=== PATIENT | female | born 1950 | race Caucasian/White ===

== ENCOUNTER 2022-12-21 14:57 | Outpatient (OUT) | payer MEDICARE, OTHER, SELFPAY ==
--- NOTE | 2022-12-21 15:12 | MM_ITS ---
Patient: JOSEPH FUENTES Exam Date: 12/21/2022 : 1950 Gender:F Ordering : DR FITZ TYSON M.D. Admission #: [id number] Family : DR Haven Jensen M.D. Order #: [id number] CLICK HERE TO VIEW EXAM RADIOLOGY REPORT PROCEDURE: MM TOMOSYNTHESIS SCREENING BI COMPARISON: MG MAMM SCREEN 3D FRANK CAD, 10/27/2021. MG MAMM SCREEN FRANK W CAD, 01/07/2020. INDICATIONS: Screening mammogram Z12.31 Calculator Name NCI Breast Cancer Risk Assessment Tool 5 Year Breast Cancer Risk 1.30% Lifetime Breast Cancer Risk 3.00% Personal Breast Cancer No Personal Ovarian Cancer Yes, OVARIAN CA 2007 Treatments HYSTERECTOMY AND CHEMO Family Cancers Grandmother-maternal with colon cancer at age ~60. LOCATION: [facility] BREAST COMPOSITION: Almost entirely fatty. FINDINGS: DIAGNOSTIC CATEGORY 1--NEGATIVE. NO CHANGE FROM COMPARISON ASSESSMENT. Scattered benign-appearing nodules are present. Scattered benign-appearing calcifications are present. Scattered benign-appearing lymph nodes are present. RIGHT BREAST: No significant suspicious finding. LEFT BREAST: No significant suspicious finding. RECOMMENDATIONS: ROUTINE MAMMOGRAM AND CLINICAL EVALUATION IN 12 MONTHS. PLEASE NOTE: A NORMAL MAMMOGRAM DOES NOT EXCLUDE THE POSSIBILITY OF BREAST CANCER. A CLINICALLY SUSPICIOUS PALPABLE LUMP SHOULD BE BIOPSIED. Dictated by: Randy Spangler MD on 12/22/2022 at 09:01 Approved by: Randy Spangler MD on 12/22/2022 at 09:02
== END 2022-12-21 14:58 | disposition home or self-care (01) ==
PROVIDERS: PCP Family Medicine; Visit Provider Internal Medicine Hematology & Oncology
DX: Z12.31 Encounter for screening mammogram for malignant neoplasm of breast (principal); Z80.0 Family history of malignant neoplasm of digestive organs
CPT/HCPCS: 77063; 77067

== ENCOUNTER 2024-01-26 13:05 | Outpatient (OUT) | payer MEDICARE, OTHER, SELFPAY ==
--- NOTE | 2024-01-26 13:08 | MM_ITS ---
Patient Name: JOSEPH FUENTES MR#: [id number] : 1950 Exam Date: 01/26/2024 Ordering Doctor: DR FITZ TYSON M.D. RADIOLOGY REPORT PROCEDURE: MM TOMOSYNTHESIS SCREENING BI COMPARISON: MM TOMOSYNTHESIS SCREENING BI, 12/21/2022. MG MAMM SCREEN 3D FRANK CAD, 10/27/2021. INDICATIONS: Screening Calculator Name NCI Breast Cancer Risk Assessment Tool 5 Year Breast Cancer Risk 1.30% Lifetime Breast Cancer Risk 2.80% Personal Breast Cancer No Personal Ovarian Cancer Yes, OVARIAN CA 2007 Treatments HYSTERECTOMY AND CHEMO Family Cancers Grandmother-maternal with colon cancer at age ~60. LOCATION: [facility] BREAST COMPOSITION: The breasts are almost entirely fatty. FINDINGS: DIAGNOSTIC CATEGORY 2--BENIGN FINDING. NO CHANGE FROM COMPARISON. Scattered benign-appearing nodules are present. Scattered benign-appearing calcifications are present. Scattered benign-appearing lymph nodes are present. RIGHT BREAST: No significant suspicious finding. LEFT BREAST: No significant suspicious finding. RECOMMENDATIONS: ROUTINE MAMMOGRAM AND CLINICAL EVALUATION IN 12 MONTHS. PLEASE NOTE: A NORMAL MAMMOGRAM DOES NOT EXCLUDE THE POSSIBILITY OF BREAST CANCER. A CLINICALLY SUSPICIOUS PALPABLE LUMP SHOULD BE BIOPSIED. Dictated by: Randy Spangler MD on 01/26/2024 at 15:50 Approved by: Randy Spangler MD on 01/26/2024 at 15:52
== END 2024-01-26 13:06 | disposition home or self-care (01) ==
LOC: MAMMO 13:05
PROVIDERS: PCP Family Medicine; Visit Provider Internal Medicine Hematology & Oncology
DX: Z12.31 Encounter for screening mammogram for malignant neoplasm of breast (principal); Z80.0 Family history of malignant neoplasm of digestive organs
CPT/HCPCS: 77063; 77067

== ENCOUNTER 2024-03-16 15:53 | Outpatient (OUT) | payer MEDICARE, OTHER, SELFPAY ==
--- NOTE | 2024-03-16 15:56 | XR_ITS ---
The [address] [address] Patient Name: JOSEPH FUENTES MRN: [id number] date: 1950 Sex: F Assigned Patient Location: [facility] Current Patient Location: Accession/Order Number: [id number] Exam Date: 03/16/2024 15:58 Report Date: 03/17/2024 08:07 At the request of: TATIANA BURDEN Procedure: XR humerus LT PROCEDURE: XR humerus LT HISTORY: Pain of left upper arm M79.622 COMPARISON: None. FINDINGS: BONES:Mild degenerative changes of the acromioclavicular joint and glenohumeral joint. No fracture, dislocation, or bone lesion. SOFT TISSUES:No visible soft tissue swelling. EFFUSION:None visible. OTHER: Negative. XR/XR humerus LT IMPRESSION: 1. Mild degenerative changes. Electronically authenticated by: JIN THORPE Date: 03/17/2024 08:07
== END 2024-03-16 15:54 | disposition home or self-care (01) ==
LOC: RAD 15:53
PROVIDERS: PCP Family Medicine; Visit Provider Family Medicine
DX: M79.622 Pain in left upper arm (principal)
CPT/HCPCS: 73060